=== PATIENT | male | born 1940 | race Caucasian/White ===

== ENCOUNTER 2020-02-12 08:39 | Outpatient (CLI) | payer MEDICARE, OTHER, SELFPAY ==
[2020-02-12 09:36] LABS: Basophils % 0.8 %; Eosinophils # 0.1 10^3/uL (0.0-0.8); Eosinophils % 3.2 %; Hematocrit 53.6 % (42.0-52.0); Lymphocytes # 1.1 10^3/uL (0.8-4.8); Lymphocytes % 29.2 %; Mean Corpuscular HGB Conc 33.6 g/dL (30.0-36.0); Mean Corpuscular Hemoglobin 30.8 pg (28.0-34.0); Mean Corpuscular Volume 91.8 fL (80-94); Mean Platelet Volume 10.7 fL (7.4-10.4); Monocytes # 0.6 10^3/uL (0.2-0.9); Monocytes % 15.6 %; Neutrophils # 1.9 10^3/uL (1.8-7.7); Neutrophils % 50.7 %; Nucleated Red Blood Cells % 0 %; Platelet Count 173 10^3/cmm (130-400); Red Blood Count 5.84 10^6/uL (4.1-5.3); Red Cell Distribution Width 12.4 % (12.1-15.1); White Blood Count 3.8 10^3/uL (4.0-10.0)
--- NOTE | 2020-02-12 17:39 | ONC CON_ITS ---
Dr. Spann New Patient Note Patient: Kenneth Dewitt Unit #: [id number]: 1940 Dicatated By: Farideh Spann M.D.Date of Visit: Feb 12, 2020 Onc MED New Patient/Consult Referring Physician: Anat RICHARD History of Present Illness: Mr. Kenneth Dewitt, is a 79-year-old gentleman with history of hypogonadism, now being treated with testosterone supplement for the last 4-5 years patient said he used to donate blood until recently. And his routine labs done on 02/05/2020 showed his white blood count was 3.9 hemoglobin 18.6 hematocrit 55 platelets 181,000 whereas CBC done on 10/03/2019 showed white blood count 3.8 hemoglobin 17.7 hematocrit 50.5, as per patient prior to that he never had any blood problem as he used to donate blood on a regular basis. Patient also has history of CVA in the past as per patient he did develop light sided weakness and speech problem and because of delayed in seeking help, he was treated conservatively with physical therapy and said it took about 2 years for him to recover fully. Patient denies smoking or alcohol use patient denies any headaches or blurred vision or double vision, patient denies any discoloration of lips. Denies any shortness of breath or any cardiac problem. Past Medical History: Mr. Dewitt's medical history consists of bph, depression, hyperlipidemia, osteoarthritis (bilateral knees), vitamin B12 deficiency, Vitamin D deficiency, and stroke in 2009. Past Surgical History: Mr. Valdezs surgical/procedural history consists of appendectomy, tonsillectomy, and vasectomy. Medications: Flomax 1 Capsule (of 0.4 mg) Oral daily, Vitamin B12 1 Tablet Oral daily Allergies: Codeine Sulfate and Demerol. 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 Mr. Dewitt has never smoked. He has no history of drinking. Mr. Dewitt reports the following support systems: lives with spouse, significant other, family, or friends, lives in own house, supportive family/friends willing to assist with needs, and adequate transportation available for expected visits. His diet consists of regular meals. He indicates his activity level as: regular exercise. Family History: Mr. Dewitt's mother is alive: hypertension. Mr. Dewitt's father at age 62: brain cancer. Mr. Dewitt has 1 brother who is alive: colon cancer. Review Of Symptoms: Review of Systems is not available for this patient. Vital Signs: Performed on Feb 12, 2020 11:23: 6, 39.72 (HIGH), 2.03 sq.m, 63.00 in, 96 %, 77 /min, 20 /min, 134/72 mm(hg), 98.4 F, and 224.2 lbs (HIGH). Performance Status: 0 - Fully active, able to carry on all predisease activities without restrictions. (ECOG) Physical Examination: ENMT - no mouth sores, no thrush, no jaundice, Respiratory - Lungs are clear, Cardiovascular - Regular rate and rhythm of heart, Abdomen - soft, bowel sounds present, Extremities - no edema or rash. Lab/Imaging: Most recent lab results are not available for this patient. 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 Hypogonadism, patient on testosterone supplement for the last 5 years History of CVA, now recovered Plan: Discussed with patient regarding his labs from today showed white blood count 3.8 hemoglobin 18 hematocrit 53.6 platelets 173,000 Clinically, patient is doing well with no new symptoms but his hematocrit and erythrocyte masses elevated most likely due to testosterone supplements as testosterone supplement can cause erythropoietin production or bone marrow stimulation and thus erythrocytosis. Patient was advised to hold his testosterone supplement for month but patient is reluctant as testosterone supplement is helping his generalized weakness and fatigue. In the meantime we'll consider biweekly phlebotomy with 500 mL and 250 mL normal saline to placement and goal is to get his hematocrit below 45, if not symptomatic maybe below 42 as patient has history of CVA in the past. Patient was also advised to start taking enteric-coated aspirin 325 mg by mouth daily and maintain good hydration we will also consider polycythemia panel to rule out underlying myeloproliferative disorder causing polycythemia. And abdominal sonogram to check spleen size and erythropoietin level. As patient has no history of smoking or hypoxia. Next Patient return to clinic in one month with CBC. Signed By: Farideh Spann M.D. <<Signature on File>>
== END 2020-02-12 08:40 | disposition home or self-care (01) ==
LOC: ONCMED 08:42
PROVIDERS: PCP Nurse Practitioner Family; Visit Provider Internal Medicine Hematology & Oncology
DX: D45 Polycythemia vera (principal); G47.33 Obstructive sleep apnea (adult) (pediatric); N40.0 Benign prostatic hyperplasia without lower urinary tract symptoms; F32.9 Major depressive disorder, single episode, unspecified; E78.5 Hyperlipidemia, unspecified; D51.9 Vitamin B12 deficiency anemia, unspecified; E55.9 Vitamin D deficiency, unspecified; M19.90 Unspecified osteoarthritis, unspecified site; Z86.73 Personal history of transient ischemic attack (TIA), and cerebral infarction without residual deficits
CPT/HCPCS: 85025; 99195; 99203

== ENCOUNTER 2020-02-13 10:00 | Outpatient (CLI) | payer MEDICARE, OTHER, SELFPAY ==
--- NOTE | 2020-02-13 10:08 | US_ITS ---
WS: [id number] ABDOMINAL ULTRASOUND REASON FOR EXAM: POLYCYTHEMIA TECHNIQUE: Grayscale and Doppler ultrasound examination of the abdomen. FINDINGS: Pancreas: Normal Abdominal aorta and IVC: Normal Liver: Liver measures 18.4 cm in length. Dense configuration the liver suggesting fatty infiltration. Gallbladder: Gallbladder wall thickness measures 0.3 cm. Common bile duct measured 0.49 cm. No gallst ones. Left kidney: Left kidney measures 14.9 cm x 5.2 cm x 5.6 cm. Left kidney cortex measures 1.23 c m cm. No hydronephrosis. Right kidney: Right kidney measures 13.2 cm x 5.0 cm x 5.7 cm. No hydronephrosis no stones. Spleen: Spleen measures 14.4 cm x 5.2 cm x 5.4 cm. Homogeneous configuration of the spleen which is slightly enlarged. US/US abdomen complete* [id number] IMPRESSION: Mild splenomegaly. Enlarged liver with hepatomegaly. Mild fatty infiltration. Slightly thickened wall gallbladder suggests cholecystitis.
== END 2020-02-13 10:01 | disposition home or self-care (01) ==
LOC: RAD 10:04
PROVIDERS: PCP Nurse Practitioner Family; Visit Provider Internal Medicine Hematology & Oncology
DX: D75.1 Secondary polycythemia (principal); R16.1 Splenomegaly, not elsewhere classified; R16.0 Hepatomegaly, not elsewhere classified; K76.0 Fatty (change of) liver, not elsewhere classified
CPT/HCPCS: 76700

== ENCOUNTER 2020-02-28 09:17 | Outpatient (CLI) | payer MEDICARE, OTHER, SELFPAY ==
[2020-02-28 09:42] LABS: Basophils % 0.9 %; Eosinophils # 0.1 10^3/uL (0.0-0.8); Eosinophils % 2.8 %; Hematocrit 52.8 % (42.0-52.0); Hemoglobin 17.6 g/dL (11.7-16.6); Lymphocytes # 1.3 10^3/uL (0.8-4.8); Mean Corpuscular HGB Conc 33.3 g/dL (30.0-36.0); Mean Corpuscular Hemoglobin 31.2 pg (28.0-34.0); Mean Corpuscular Volume 93.5 fL (80-94); Mean Platelet Volume 10.2 fL (7.4-10.4); Monocytes # 0.6 10^3/uL (0.2-0.9); Monocytes % 13.4 %; Neutrophils # 2.3 10^3/uL (1.8-7.7); Neutrophils % 52.7 %; Nucleated Red Blood Cells % 0 %; Platelet Count 181 10^3/cmm (130-400); Red Blood Count 5.65 10^6/uL (4.1-5.3); Red Cell Distribution Width 12.7 % (12.1-15.1); White Blood Count 4.3 10^3/uL (4.0-10.0)
[2020-02-28] MEDS: sodium chloride 0.9% 250 ML IV (09:55)
== END 2020-02-28 09:18 | disposition home or self-care (01) ==
LOC: ONCMED 09:20
PROVIDERS: PCP Nurse Practitioner Family; Visit Provider Internal Medicine Hematology & Oncology
DX: D75.1 Secondary polycythemia (principal)
CPT/HCPCS: 85025; 99195; 99211; J7050

== ENCOUNTER 2020-03-18 10:58 | Outpatient (CLI) | payer MEDICARE, OTHER, SELFPAY ==
[2020-03-18 11:47] LABS: Basophils % 0.7 %; Eosinophils # 0.2 10^3/uL (0.0-0.8); Eosinophils % 4.2 %; Hematocrit 51.1 % (42.0-52.0); Hemoglobin 17.2 g/dL (11.7-16.6); Lymphocytes # 1.2 10^3/uL (0.8-4.8); Lymphocytes % 29.6 %; Mean Corpuscular HGB Conc 33.7 g/dL (30.0-36.0); Mean Corpuscular Hemoglobin 31.6 pg (28.0-34.0); Mean Corpuscular Volume 93.9 fL (80-94); Mean Platelet Volume 10.6 fL (7.4-10.4); Monocytes # 0.6 10^3/uL (0.2-0.9); Neutrophils # 2.1 10^3/uL (1.8-7.7); Nucleated Red Blood Cells % 0 %; Platelet Count 211 10^3/cmm (130-400); Red Blood Count 5.44 10^6/uL (4.1-5.3); Red Cell Distribution Width 12.7 % (12.1-15.1); White Blood Count 4.1 10^3/uL (4.0-10.0)
--- NOTE | 2020-03-18 14:17 | ONC FU_ITS ---
Dr. Spann follow up note Patient: Kenneth Dewitt Unit #: [id number]: 1940 Dicatated By: Farideh Spann M.D.Date of Visit:Mar 18, 2020 Onc Med Follow-up/Prog Note History of Present Illness: Mr. Kenneth Dewitt, is a 79-year-old gentleman with history of hypogonadism, now being treated with testosterone supplement for the last 4-5 years patient said he used to donate blood until recently. And his routine labs done on 02/05/2020 showed his white blood count was 3.9 hemoglobin 18.6 hematocrit 55 platelets 181,000 whereas CBC done on 10/03/2019 showed white blood count 3.8 hemoglobin 17.7 hematocrit 50.5, as per patient prior to that he never had any blood problem as he used to donate blood on a regular basis. Patient also has history of CVA in the past as per patient he did develop light sided weakness and speech problem and because of delayed in seeking help, he was treated conservatively with physical therapy and said it took about 2 years for him to recover fully. Patient denies smoking or alcohol use patient denies any headaches or blurred vision or double vision, patient denies any discoloration of lips. Denies any shortness of breath or any cardiac problem.Abdominal sonogram done on February 13, 2020 showed liver measuring 18.4 cm, fatty infiltration and spleen measure 14.4 cm x 5.4 cm x 5.2 cm e.g. mildly enlarged Came for follow-up, denies any specific complaints, no fever chills, no nausea vomiting, no headaches blurred vision or double vision. Patient did not stop his testosterone supplement as per patient without testosterone supplements he feels weak and washed out. Tolerating phlebotomies well Medications: Depo-Testosterone 0.5 Each (of 100 mg/mL) Intramuscular q 7 days, Flomax 1 Capsule (of 0.4 mg) Oral daily, Vitamin B12 1 Tablet Oral daily Allergies: Codeine Sulfate and Demerol. Review of Systems: Constitutional - Appetite is good and weight is stable. No fever, night sweats, or hot flashes. Energy level is good, ENMT - No sinus congestion/drainage. No mouth sores. No sore throat or difficulty swallowing, Hematologic/Lymphatic - No abnormal bruising or bleeding, Respiratory - No shortness of breath. No cough. No pleuritic pain or hemoptysis, Cardiovascular - No angina pain. No palpitations, Gastrointestinal - No nausea or vomiting. No heartburn or acid reflux. No diarrhea or constipation. No blood in the stool or black stools, Genitourinary (M) - No dysuria or hematuria. No urinary frequency. No urgency or incontinence, Musculoskeletal - No joint or bone pain, Neurologic - No headache or dizziness. No numbness or tingling. No other focal neurologic symptoms, Psychiatric - No anxiety or depression. No insomnia. Vital Signs: Performed on Mar 18, 2020 13:19 Height - 63.00 in Weight - 219.8 lbs (LOW) BSA - 2.01 sq.m BMI - 38.94 (HIGH) Temperature - 98.6 F Pulse - 80 /min Respiration - 18 /min BP - 142/72 mm(hg) (HIGH) O2 Sat - 94 % (LOW) Pain - 0 Performance Status: 0 - Fully active, able to carry on all predisease activities without restrictions. (ECOG) Physical Examination: ENMT - No mouth sores, no thrush, no jaundice, Respiratory - Lungs are clear, Cardiovascular - Regular rate and rhythm of heart, Abdomen - Soft, bowel sounds present, Extremities - No visible edema. 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 Hypogonadism, patient on testosterone supplement for the last 5 years History of CVA, now recovered Plan: Discussed with patient regarding his labs white blood count 4.1 hemoglobin 17.2 hematocrit 51.1 platelets 211,000 abdominal sonogram showed mild hepatosplenomegaly Clinically, patient is doing well, with no new signs symptom, tolerating biweekly phlebotomies well, his follow-up CBC showed not significant improvement in his hemoglobin/hematocrit with biweekly phlebotomies, at this point we will consider weekly phlebotomy with 500 cc blood drawn and 250 cc normal saline replacement and goal is to keep hematocrit equal to or below 42. His abdominal sonogram shows mild hepatosplenomegaly of questionable etiology. So we will consider Devin 2 mutation testing to rule out primary marrow disorder like polycythemia vera or myeloproliferative disorder. Patient was advised to maintain good hydration as well as daily aspirin. Patient was again encouraged to discontinue or reduce testosterone supplement dose but patient declined. Signed By: Farideh Spann M.D. <<Signature on File>>
== END 2020-03-18 10:59 | disposition home or self-care (01) ==
LOC: ONCMED 11:02
PROVIDERS: PCP Nurse Practitioner Family; Visit Provider Internal Medicine Hematology & Oncology
DX: D75.1 Secondary polycythemia (principal); E29.1 Testicular hypofunction; R16.2 Hepatomegaly with splenomegaly, not elsewhere classified; Z79.890 Hormone replacement therapy; Z86.73 Personal history of transient ischemic attack (TIA), and cerebral infarction without residual deficits
CPT/HCPCS: 36415; 81270; 85025; 99195; 99214

== ENCOUNTER 2020-03-27 08:33 | Outpatient (CLI) | payer MEDICARE, OTHER, SELFPAY ==
[2020-03-27 09:07] LABS: Basophils % 0.9 %; Eosinophils # 0.1 10^3/uL (0.0-0.8); Eosinophils % 3.8 %; Hematocrit 50.3 % (42.0-52.0); Hemoglobin 16.7 g/dL (11.7-16.6); Lymphocytes # 1.2 10^3/uL (0.8-4.8); Mean Corpuscular HGB Conc 33.2 g/dL (30.0-36.0); Mean Corpuscular Hemoglobin 30.7 pg (28.0-34.0); Mean Corpuscular Volume 92.5 fL (80-94); Mean Platelet Volume 10.5 fL (7.4-10.4); Monocytes # 0.5 10^3/uL (0.2-0.9); Monocytes % 15.3 %; Neutrophils # 1.52 10^3/uL (1.8-7.7); Neutrophils % 44.7 %; Nucleated Red Blood Cells % 0 %; Platelet Count 188 10^3/cmm (130-400); Red Blood Count 5.44 10^6/uL (4.1-5.3); Red Cell Distribution Width 12.5 % (12.1-15.1); White Blood Count 3.4 10^3/uL (4.0-10.0)
== END 2020-03-27 08:34 | disposition home or self-care (01) ==
LOC: ONCMED 08:36
PROVIDERS: PCP Nurse Practitioner Family; Visit Provider Internal Medicine Hematology & Oncology
DX: E78.5 Hyperlipidemia, unspecified; D51.9 Vitamin B12 deficiency anemia, unspecified; E55.9 Vitamin D deficiency, unspecified; N40.0 Benign prostatic hyperplasia without lower urinary tract symptoms; F32.9 Major depressive disorder, single episode, unspecified; D75.1 Secondary polycythemia
CPT/HCPCS: 36415; 85025; 99195

== ENCOUNTER 2020-04-03 08:48 | Outpatient (CLI) | payer MEDICARE, OTHER, SELFPAY ==
[2020-04-03 09:19] LABS: Basophils % 0.8 %; Eosinophils # 0.1 10^3/uL (0.0-0.8); Eosinophils % 3.5 %; Hematocrit 47.4 % (42.0-52.0); Hemoglobin 15.7 g/dL (11.7-16.6); Lymphocytes # 1.3 10^3/uL (0.8-4.8); Lymphocytes % 32.8 %; Mean Corpuscular HGB Conc 33.1 g/dL (30.0-36.0); Mean Corpuscular Hemoglobin 30.6 pg (28.0-34.0); Mean Corpuscular Volume 92.4 fL (80-94); Mean Platelet Volume 10.6 fL (7.4-10.4); Monocytes # 0.6 10^3/uL (0.2-0.9); Neutrophils # 1.94 10^3/uL (1.8-7.7); Neutrophils % 48.6 %; Nucleated Red Blood Cells % 0 %; Platelet Count 213 10^3/cmm (130-400); Red Blood Count 5.13 10^6/uL (4.1-5.3); Red Cell Distribution Width 12.2 % (12.1-15.1)
== END 2020-04-03 08:49 | disposition home or self-care (01) ==
LOC: ONCMED 08:50
PROVIDERS: PCP Nurse Practitioner Family; Visit Provider Internal Medicine Hematology & Oncology
DX: D75.1 Secondary polycythemia (principal); E78.5 Hyperlipidemia, unspecified; D51.9 Vitamin B12 deficiency anemia, unspecified; E55.9 Vitamin D deficiency, unspecified
CPT/HCPCS: 36415; 85025

== ENCOUNTER 2020-04-10 08:18 | Outpatient (CLI) | payer MEDICARE, OTHER, SELFPAY ==
[2020-04-10 09:09] LABS: Basophils % 0.7 %; Eosinophils # 0.2 10^3/uL (0.0-0.8); Eosinophils % 3.7 %; Hematocrit 48.5 % (42.0-52.0); Hemoglobin 16.3 g/dL (11.7-16.6); Lymphocytes # 1.2 10^3/uL (0.8-4.8); Mean Corpuscular HGB Conc 33.6 g/dL (30.0-36.0); Mean Corpuscular Hemoglobin 30.9 pg (28.0-34.0); Mean Corpuscular Volume 91.9 fL (80-94); Mean Platelet Volume 10.4 fL (7.4-10.4); Monocytes # 0.6 10^3/uL (0.2-0.9); Monocytes % 14.8 %; Neutrophils # 2.27 10^3/uL (1.8-7.7); Neutrophils % 52.6 %; Nucleated Red Blood Cells % 0 %; Platelet Count 214 10^3/cmm (130-400); Red Blood Count 5.28 10^6/uL (4.1-5.3); White Blood Count 4.3 10^3/uL (4.0-10.0)
[2020-04-10] MEDS: sodium chloride 0.9% 500 ML 999 ML IV (09:15)
== END 2020-04-10 08:19 | disposition home or self-care (01) ==
LOC: ONCMED 08:29
PROVIDERS: PCP Nurse Practitioner Family; Visit Provider Internal Medicine Hematology & Oncology
DX: D75.1 Secondary polycythemia (principal)
CPT/HCPCS: 85025; 99195; J7050

== ENCOUNTER 2020-04-24 06:20 | Outpatient (CLI) | payer MEDICARE, OTHER, SELFPAY ==
[2020-04-24 08:53] LABS: Basophils # 0.1 10^3/uL (0.0-0.1); Basophils % 1.3 %; Eosinophils # 0.1 10^3/uL (0.0-0.8); Eosinophils % 3.2 %; Hematocrit 45.1 % (42.0-52.0); Lymphocytes # 1.3 10^3/uL (0.8-4.8); Lymphocytes % 34.2 %; Mean Corpuscular HGB Conc 33.3 g/dL (30.0-36.0); Mean Corpuscular Hemoglobin 30.4 pg (28.0-34.0); Mean Corpuscular Volume 91.5 fL (80-94); Mean Platelet Volume 10.7 fL (7.4-10.4); Monocytes # 0.7 10^3/uL (0.2-0.9); Monocytes % 18.2 %; Neutrophils # 1.63 10^3/uL (1.8-7.7); Neutrophils % 42.8 %; Nucleated Red Blood Cells % 0 %; Platelet Count 199 10^3/cmm (130-400); Red Blood Count 4.93 10^6/uL (4.1-5.3); Red Cell Distribution Width 11.7 % (12.1-15.1); White Blood Count 3.8 10^3/uL (4.0-10.0)
--- NOTE | 2020-04-27 09:31 | ONC FU_ITS ---
Dr. Spann follow up note Patient: Kenneth Dewitt Unit #: [id number]: 1940 Dicatated By: Farideh Spann M.D.Date of Visit:Apr 24, 2020 Onc Med Follow-up/Prog Note History of Present Illness: Mr. Kenneth Dewitt, is a 79-year-old gentleman with history of hypogonadism, now being treated with testosterone supplement for the last 4-5 years patient said he used to donate blood until recently. And his routine labs done on 02/05/2020 showed his white blood count was 3.9 hemoglobin 18.6 hematocrit 55 platelets 181,000 whereas CBC done on 10/03/2019 showed white blood count 3.8 hemoglobin 17.7 hematocrit 50.5, as per patient prior to that he never had any blood problem as he used to donate blood on a regular basis. Patient also has history of CVA in the past as per patient he did develop light sided weakness and speech problem and because of delayed in seeking help, he was treated conservatively with physical therapy and said it took about 2 years for him to recover fully. Patient denies smoking or alcohol use patient denies any headaches or blurred vision or double vision, patient denies any discoloration of lips. Denies any shortness of breath or any cardiac problem. Tolerating PRN phlebotomies well Came for follow-up, complaining of generalized weakness and fatigue since last phlebotomy but no dizziness no lightheadedness no palpitation, no chest pain, no shortness of breath, no headaches no blurred vision no double vision, Medications: Depo-Testosterone 0.5 Each (of 100 mg/mL) Intramuscular q 7 days, Flomax 1 Capsule (of 0.4 mg) Oral daily, Vitamin B12 1 Tablet Oral daily Allergies: Codeine Sulfate and Demerol. Review of Systems: Constitutional - Appetite is good and weight is stable. No fever, night sweats, or hot flashes. Energy level is poor today, ENMT - No sinus congestion/drainage. No mouth sores. No sore throat or difficulty swallowing, Hematologic/Lymphatic - No abnormal bruising or bleeding, Respiratory - No shortness of breath. No cough. No pleuritic pain or hemoptysis, Cardiovascular - No angina pain. No palpitations, Gastrointestinal - No nausea or vomiting. No heartburn or acid reflux. No diarrhea or constipation. No blood in the stool or black stools, Genitourinary (M) - No dysuria or hematuria. No urinary frequency. No urgency or incontinence, Musculoskeletal - No joint or bone pain, Neurologic - No headache or dizziness. No numbness or tingling. No other focal neurologic symptoms, Psychiatric - No anxiety or depression. No insomnia. Vital Signs: Performed on Apr 24, 2020 10:08 Height - 63.00 in Weight - 220.0 lbs (HIGH) BSA - 2.01 sq.m BMI - 38.97 (HIGH) Temperature - 98.2 F (LOW) Pulse - 80 /min Respiration - 24 /min BP - 132/65 mm(hg) O2 Sat - 96 % Pain - 0 Performance Status: 0 - Fully active, able to carry on all predisease activities without restrictions. (ECOG) Physical Examination: ENMT - No mouth sores, no thrush, no jaundice, Respiratory - Lungs are clear, Cardiovascular - Regular rate and rhythm of heart, Abdomen - Soft, bowel sounds present, Extremities - No visible edema or rash. 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 Patient was advised to maintain good hydration and return to clinic in 2 months with CBC Signed By: Farideh Spann M.D. <<Signature on File>>
== END 2020-04-24 06:21 | disposition home or self-care (01) ==
PROVIDERS: PCP Nurse Practitioner Family; Visit Provider Internal Medicine Hematology & Oncology
DX: D75.1 Secondary polycythemia (principal); E29.1 Testicular hypofunction; R53.1 Weakness; R53.83 Other fatigue; Z79.890 Hormone replacement therapy; Z86.73 Personal history of transient ischemic attack (TIA), and cerebral infarction without residual deficits
CPT/HCPCS: 85025; G0463

== ENCOUNTER 2020-06-26 08:15 | Outpatient (CLI) | payer MEDICARE, OTHER, SELFPAY ==
[2020-06-26 08:42] LABS: Basophils % 0.8 %; Eosinophils # 0.1 10^3/uL (0.0-0.8); Eosinophils % 3.5 %; Hematocrit 48.3 % (42.0-52.0); Hemoglobin 15.1 g/dL (11.7-16.6); Lymphocytes # 1.3 10^3/uL (0.8-4.8); Lymphocytes % 35.7 %; Mean Corpuscular HGB Conc 31.3 g/dL (30.0-36.0); Mean Corpuscular Hemoglobin 27.9 pg (28.0-34.0); Mean Corpuscular Volume 89.1 fL (80-94); Mean Platelet Volume 10.2 fL (7.4-10.4); Monocytes # 0.6 10^3/uL (0.2-0.9); Monocytes % 15.8 %; Neutrophils # 1.64 10^3/uL (1.8-7.7); Neutrophils % 43.9 %; Nucleated Red Blood Cells % 0 %; Platelet Count 203 10^3/cmm (130-400); Red Blood Count 5.42 10^6/uL (4.1-5.3); Red Cell Distribution Width 12.5 % (12.1-15.1); White Blood Count 3.7 10^3/uL (4.0-10.0)
--- NOTE | 2020-06-26 10:45 | ONC FU_ITS ---
Dr. Spann follow up note Patient: Kenneth Dewitt Unit #: [id number]: 1940 Dicatated By: Farideh Spann M.D.Date of Visit:Jun 26, 2020 Onc Med Follow-up/Prog Note History of Present Illness: Mr. Kenneth Dewitt, is a 79-year-old gentleman with history of hypogonadism, now being treated with testosterone supplement for the last 4-5 years patient said he used to donate blood until recently. And his routine labs done on 02/05/2020 showed his white blood count was 3.9 hemoglobin 18.6 hematocrit 55 platelets 181,000 whereas CBC done on 10/03/2019 showed white blood count 3.8 hemoglobin 17.7 hematocrit 50.5, as per patient prior to that he never had any blood problem as he used to donate blood on a regular basis. Patient also has history of CVA in the past as per patient he did develop light sided weakness and speech problem and because of delayed in seeking help, he was treated conservatively with physical therapy and said it took about 2 years for him to recover fully. Patient denies smoking or alcohol use patient denies any headaches or blurred vision or double vision, patient denies any discoloration of lips. Denies any shortness of breath or any cardiac problem. Tolerating PRN phlebotomies well Came for follow-up, denies any specific complaints, no fever chills, no headaches no blurred vision or double vision no chest pain no shortness of breath no heaviness in the head or chest. Medications: Depo-Testosterone 0.5 Each (of 100 mg/mL) Intramuscular q 7 days, Flomax 1 Capsule (of 0.4 mg) Oral daily, Multivitamin 1 Tablet Oral daily, Vitamin B12 1 Tablet Oral daily Allergies: Codeine Sulfate and Demerol. Review of Systems: Review of Systems is not available for this patient. Vital Signs: Performed on Jun 26, 2020 09:59 Height - 63.00 in Weight - 220.6 lbs (HIGH) BSA - 2.02 sq.m BMI - 39.08 (HIGH) Temperature - 97.7 F (LOW) Pulse - 70 /min Respiration - 18 /min BP - 144/71 mm(hg) (HIGH) O2 Sat - 97 % Pain - 0 Performance Status: 0 - Fully active, able to carry on all predisease activities without restrictions. (ECOG) Physical Examination: ENMT - No mouth sores, no thrush, no jaundice, Respiratory - Lungs are clear to auscultation, Cardiovascular - Regular rate and rhythm of heart, Abdomen - Soft, bowel sounds present, Extremities - No visible edema. 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 Hypogonadism, patient on testosterone supplement for the last 5 years History of CVA, now recovered Plan: Discussed with patient regarding his labs white blood count 3.7 hemoglobin 15.1 hematocrit 48.3 platelets 203,000 Clinically, patient is doing well with the notes new signs symptoms, his follow-up CBC shows hematocrit 48.3 which is within normal range. 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 Patient is doing well, energetic. At this point will see him on as-needed basis, patient will follow-up with his primary care physician on regular basis and patient was advised in case he has any symptoms like recurrent headaches or heaviness in chest or head he need to call us otherwise maintain good hydration. Mild leukopenia, patient is not interested in further work-up rather observation. Signed By: Farideh Spann M.D. <<Signature on File>>
== END 2020-06-26 08:16 | disposition home or self-care (01) ==
LOC: ONCMED 08:18
PROVIDERS: PCP Nurse Practitioner Family; Visit Provider Internal Medicine Hematology & Oncology
DX: D75.1 Secondary polycythemia (principal); T38.7X5D Adverse effect of androgens and anabolic congeners, subsequent encounter; D72.819 Decreased white blood cell count, unspecified; E29.1 Testicular hypofunction; Z86.73 Personal history of transient ischemic attack (TIA), and cerebral infarction without residual deficits; Z79.890 Hormone replacement therapy
CPT/HCPCS: 36415; 85025; G0463

== ENCOUNTER 2020-08-18 17:00 | Emergency (ER) | payer MEDICARE, OTHER, SELFPAY ==
--- NOTE | 2020-08-18 17:11 | XR_ITS ---
WS: [id number] XR chest 1V portable [id number] REASON FOR EXAM: syncope FINDINGS: Moderate tortuosity of the thoracic aorta without dilatation. The heart size is at the upper limits o f normal. There are reticular nodular interstitial infiltrative changes in the periphery of the right midlung f ield and also likely the left midlung field. No findings of pleural effusion are identified. Degenerative changes in both shoulder joints and mild to moderate degenerative spondylosis in the mid and lower thoracic spine. XR/XR chest 1V portable [id number] IMPRESSION: Pulmonary infiltrates of unknown chronicity as above compatible with acute/suba cute pneumonitis.
[2020-08-18 17:23] VITALS: BP 133/74; PULSE 85; RESP 20; O2SAT 92; BMI 26.9
--- NOTE | 2020-08-18 17:38 | ECG_ITS ---
[facility] Test Date: 2020-08-18 Pat Name: Kenneth Dewitt Department: Room: Gender: Male [employer] Inspector: : 1940 Requested By: Jesi Johnston Order Number: [id number] Manzo MD: Sue Orr M.D. Measurements Intervals [place] Rate: 82 P: -2 [place]: 113 QRS: -19 QRSD: 107 T: 1 QT: 344 QTc: 402 Interpretive Statements SINUS RHYTHM WITH SHORT [place] INTERVAL VOLTAGE CRITERIA FOR LVH [MEETS CRITERIA IN ONE OF: R(aVL), S(V1), R(V5), R(V5/V6)+S(V1)] NONSPECIFIC T-WAVE ABNORMALITY No previous ECG available for comparison Electronically Signed On 08-18-2020 20:59:30 CHEMICAL ANALYST by Sue Orr M.D. [email or web address]
--- NOTE | 2020-08-18 17:40 | W.ED.COVID ---
HPI - COVID General: Chief Complaint: COVID symptoms Stated Complaint: COVID +/Cough,Fever,Weak, Trouble Eating Time Seen by Provider: 08/18/20 17:20 Triage information: Has fever, cough or shortness of breath. No known COVID + exposure last 14 days History of Present Illness: HPI Narrative: 80 year old male presents to the ED with worsening COVID symptoms - reports + test result 08/10/2020. Spouse reports sudden onset of fever, low O2 sat with decreased appetite x 2 days - reports he has increased breathing problems today. MD complaint: known COVID positive Prior covid testing: yes, results known ([facility]) Prior testing date: 08/10/20 COVID 19 common symptoms: positive fever(s), chills, cough, productive cough, dyspnea, body aches, loss of sense of smell and/or taste and nasal congestion; negative headache(s), nausea, vomiting or diarrhea COVID 19 other sytmptoms: positive lethargy; negative chest pain Onset (ago): week(s) (2) Severity: slowly worsening Pertinent comorbid conditions: other (polycythemia) Treatment prior to arrival: acetaminophen COVID Results: SARS-CoV-2 Antigen (Rapid) Negative (Negative) 08/18/20 19:19 08/18/20 Nasal/Oral Coronavirus 2019 PCR Pending 08/18/20 19:19 08/18/20 Review of Systems General: Reports: 10 or more systems reviewed and unremarkable except in HPI and below Const: Reports: fever(s), chills and body aches Eyes: Denies: blurry vision or eye redness ENMT: Reports: nasal discharge, nasal congestion, nasal obstruction and post nasal drip; Denies: odynophagia, hoarseness or ear discharge Card: Reports: dyspnea on exertion; Denies: chest pain, palpitations, irregular heart rhythm, swelling of feet/ankles, orthopnea or leg pain with exertion Resp: Reports: dyspnea, productive cough and chest congestion; Denies: pain on inspiration or hemoptysis GI: Denies: abdominal pain, nausea, vomiting, diarrhea, constipation or GI cramping : Denies: difficulty urinating, dysuria or urinary urgency Musc: Reports: muscle weakness; Denies: neck pain, back pain or joint pain Skin/Breast: Denies: rash or pruritus Neuro: Denies: headache(s), weakness in extremities or behavioral changes Psych: Denies: anxiety or depression Mike/Lymph: Denies: easy bruising PFSH ED PFSH: Social History (Updated 08/18/20 @ 17:48 by Jesi Griffin ADVERTISING COLUMNIST) Smoking and tobacco status: never smoked Household members: spouse Housing: House Physical Exam Const: COMMON NORMALS: no acute distress, patient oriented x3, alert and well nourished GENERAL APPEARANCE: cooperative, frail appearing, well hydrated and other (appears not feeling well); not in distress, not anxious and not lethargic NUTRITIONAL APPEARANCE: thin ORIENTATION/CONSCIOUSNESS: Yes awake, Yes oriented to person, Yes oriented to place and Yes oriented to time; not lethargic HENMT: COMMON NORMALS: normocephalic, atraumatic, Normal external nose present and moist oral mucous membranes HEAD & SCALP: normal to inspection, normocephalic and atraumatic FACE & SINUS: normal facial exam and face symmetric NOSE: Normal external nose present MOUTH: Normal oral and palatal mucosa present THROAT: posterior oropharynx normal Eye: COMMON NORMALS: Equal, round and reactive pupils present and EOMs intact bilaterally GENERAL EYE: appearance normal, both eyes and all related structures PUPIL: Yes Equal, round and reactive pupils present Neck/C-Spine: COMMON NORMALS: full ROM and no lymphadenopathy GENERAL: Yes normal visual inspection and Yes trachea midline CERVICAL SPINE: Yes cervical ROM normal, No pain with cervical ROM, No Cervical spine tenderness and No Paracervical muscle tenderness Lymph: LYMPHATIC: no lymphadenopathy noted Chest: COMMONS NORMALS: normal inspection of the chest Resp: COMMON NORMALS: normal respiratory effort and clear to auscultation bilaterally EFFORT & INSPECTION: Yes able to speak in complete sentences, Yes symmetric chest movement, Yes tachypneic and Yes labored AUSCULTATION: clear to auscultation bilaterally, rhonchi and diminished lung sounds bilateral Cardio: COMMON NORMALS: regular rate, regular rhythm, S1 normal heart sound present, S2 normal heart sound present and Peripheral pulses 2+ throughout RATE: regular rate RHYTHM: regular rhythm HEART SOUNDS: S1 normal heart sound present and S2 normal heart sound present PERIPHERAL PULSES: Peripheral pulses 2+ throughout GI: COMMON NORMALS: Normal to inspection, nondistended, normoactive bowel sounds present, Soft to palpation and non-tender INSPECTION: Yes normal to inspection, No abdominal distension and No central obesity PALPATION: Yes Soft to palpation : COMMON NORMALS: Yes no CVA tenderness BLADDER/KIDNEY EXAM: Yes no CVA tenderness Back/Pelvis: COMMON NORMALS: no CVA tenderness, thoracic and lumbar spine normal to inspection, no thoracic nor lumbar tenderness, thoraco-lumbar ROM normal and straight leg raise negative bilaterally Extremity: COMMON NORMALS: normal to inspection and capillary refill normal Neuro: COMMON NORMALS: patient oriented x3 and no focal motor deficits SENSORIUM/ORIENTATION: Yes alert, Yes oriented to person, Yes oriented to place, Yes oriented to time and No lethargic MOTOR EXAM: 5/5 motor strength present throughout Psych: COMMON NORMALS: mental status grossly normal, Normal thought process present, cooperative and speech normal APPEARANCE: Yes grossly normal ATTITUDE: Yes calm ACTIVITY/MOTOR BEHAVIOR: Yes appropriate eye contact SPEECH: Yes normal speech THOUGHT PROCESS: Normal thought process present INSIGHT: Good insight present (Psych) JUDGEMENT: Good judgement present (Psych) Skin: COMMON NORMALS: no rashes or lesions noted and turgor normal GENERAL SKIN EXAM: no rashes or lesions noted and turgor normal Course ED course: 80-year-old male patient presents to the emergency department with Covid symptoms. Previous test results by [facility], unable to retrieve those [employer], testing date 08/10/2020 with positive results. Onset of fever and decline started today, fever reduced with Tylenol. Concern he may have pneumonia, was referred to the emergency department by his primary care provider. Chest x-ray revealed questionable right middle lobe infiltrate, bibasilar opacities noted. Radiology interpretation pending by radiologist. Oxygen saturation remained 92 to 96% during his stay. He is able to monitor his oxygen saturation at home and did not wish to stay in the hospital. Respiratory did evaluate for home O2, patient did not qualify as O2 saturations ranged from 92 to 96%. Serology findings consistent with Covid illness, white blood count 3.8 thousand, elevated ESR and CRP noted, D-dimer normal, prolactin remains pending. Influenza negative. Patient administered Rocephin and azithromycin along with dexamethasone here in the ED. Patient was advised to return to the emergency department if he developed worsening symptoms such as inability to catch his breath or low oxygen level. Patient stated he did not wish to be discharged with oxygen unless absolutely necessary. Vital Signs: Vital signs: Vital Signs Pulse Rate 86 12/08/20 20:18 Respiratory Rate 17 08/18/20 20:18 Blood Pressure 155/76 08/18/20 20:18 Pulse Oximetry 92 08/18/20 20:18 MDM - COVID Differential Diagnosis: Differential diagnosis: Likely COVID 19, influenza and pulmonary embolism Lab Data: Labs: Lab Results 08/18/20 08/18/20 08/18/20 Range/Units 18:20 18:20 18:20 WBC 3.8 L (4.0-10.0) 10^3/ uL RBC 5.03 (4.1-5.3) 10^6/u L Hgb 13.6 (11.7-16.6) g/dL Hct 42.7 (42.0-52.0) % MCV 84.9 (80-94) fL MCH 27.0 L (28.0-34.0) pg MCHC 31.9 (30.0-36.0) g/dL RDW 14.2 (12.1-15.1) % Plt Count 151 (130-400) 10^3/c mm MPV 10.6 H (7.4-10.4) fL Neut % (Auto) 77.2 % Lymph % (Auto) 12.5 % [place] % (Auto) 9.0 % Eos % (Auto) 0.5 % Baso % (Auto) 0.3 % Neut # (Auto) 2.90 (1.8-7.7) 10^3/u L Lymph # (Auto) 0.5 L (0.8-4.8) 10^3/u L [place] # (Auto) 0.3 (0.2-0.9) 10^3/u L Eos # (Auto) 0.0 (0.0-0.8) 10^3/u L Baso # (Auto) 0.0 (0.0-0.1) 10^3/u L Nucleated RBC % (a uto) 0 % Nucleated RBCs # 0.0 /100WBC ESR (0-10) mm/hr D-Dimer (0-0.59) ug/mIFE U Sodium 133 L (136-145) mmol/L Potassium 4.2 (3.5-5.1) mmol/L Chloride 99 (98-107) mmol/L Carbon Dioxide 23 (22-29) mmol/L Anion Gap 15.2 (5-19) BUN 19 (8-23) mg/dL Creatinine 0.7 (0.7-1.2) mg/dL GFR Calculation Not Reportable Glucose 118 H (65-115) mg/dL Calculated Osmolal ity 279 L (285-295) mOsm/k g Lactate 0.8 (0.5-2.2) mmol/L Calcium 8.9 (8.5-10.5) mg/dL Total Bilirubin 0.5 (0.15-1.2) mg/dL AST 18 (0-40) U/L ALT 18 (0-41) U/L Alkaline Phosphata se 49 (40-130) IU/L Troponin T Baselin e (0-15) ng/L C-Reactive Protein 92.4 H (0.0-4.9) mg/L Total Protein 6.8 (6.6-8.7) g/dL Albumin 3.5 (3.5-5.2) g/dL Globulin 3.3 (1.3-4.6) g/dL Urine Color (Yellow) Urine Appearance (CLEAR) Urine pH (5-7) Ur Specific Gravit y (1.005-1.030) Urine Protein (Negative) Urine Glucose (UA) (Normal) Urine Ketones (Negative) Urine Blood (Negative) Urine Nitrate (Negative) Urine Bilirubin (Negative) Urine Urobilinogen (Negative) mg/dL Ur Leukocyte [place] ase (Negative) Urine RBC (0-2) /hpf Urine WBC (0-5) /hpf Ur Squamous Epith Cells (0-5) /hpf Amorphous Sediment Urine Bacteria (NONE) /hpf Urine Mucus /hpf Influenza Type A A g (Negative) Influenza Type B A g (Negative) SARS-CoV-2 Ag (Rap id) (Negative) 08/18/20 08/18/20 08/18/20 Range/Units 18:20 18:20 18:20 WBC (4.0-10.0) 10^3/ uL RBC (4.1-5.3) 10^6/u L Hgb (11.7-16.6) g/dL Hct (42.0-52.0) % MCV (80-94) fL MCH (28.0-34.0) pg MCHC (30.0-36.0) g/dL RDW (12.1-15.1) % Plt Count (130-400) 10^3/c mm MPV (7.4-10.4) fL Neut % (Auto) % Lymph % (Auto) % [place]ding % (Auto) % Eos % (Auto) % Baso % (Auto) % Neut # (Auto) (1.8-7.7) 10^3/u L Lymph # (Auto) (0.8-4.8) 10^3/u L [place] # (Auto) (0.2-0.9) 10^3/u L Eos # (Auto) (0.0-0.8) 10^3/u L Baso # (Auto) (0.0-0.1) 10^3/u L Nucleated RBC % (a uto) % Nucleated RBCs # /100WBC ESR 54 H (0-10) mm/hr D-Dimer 0.55 (0-0.59) ug/mIFE U Sodium (136-145) mmol/L Potassium (3.5-5.1) mmol/L Chloride (98-107) mmol/L Carbon Dioxide (22-29) mmol/L Anion Gap (5-19) BUN (8-23) mg/dL Creatinine (0.7-1.2) mg/dL GFR Calculation Glucose (65-115) mg/dL Calculated Osmolal ity (285-295) mOsm/k g Lactate (0.5-2.2) mmol/L Calcium (8.5-10.5) mg/dL Total Bilirubin (0.15-1.2) mg/dL AST (0-40) U/L ALT (0-41) U/L Alkaline Phosphata se (40-130) IU/L Troponin T Baselin e 15 (0-15) ng/L C-Reactive Protein (0.0-4.9) mg/L Total Protein (6.6-8.7) g/dL Albumin (3.5-5.2) g/dL Globulin (1.3-4.6) g/dL Urine Color (Yellow) Urine Appearance (CLEAR) Urine pH (5-7) Ur Specific Gravit y (1.005-1.030) Urine Protein (Negative) Urine Glucose (UA) (Normal) Urine Ketones (Negative) Urine Blood (Negative) Urine Nitrate (Negative) Urine Bilirubin (Negative) Urine Urobilinogen (Negative) mg/dL Ur Leukocyte [place] ase (Negative) Urine RBC (0-2) /hpf Urine WBC (0-5) /hpf Ur Squamous Epith Cells (0-5) /hpf Amorphous Sediment Urine Bacteria (NONE) /hpf Urine Mucus /hpf Influenza Type A A g (Negative) Influenza Type B A g (Negative) SARS-CoV-2 Ag (Rap id) (Negative) 08/18/20 08/18/20 08/18/20 Range/Units 19:00 19:19 19:28 WBC (4.0-10.0) 10^3/ uL RBC (4.1-5.3) 10^6/u L Hgb (11.7-16.6) g/dL Hct (42.0-52.0) % MCV (80-94) fL MCH (28.0-34.0) pg MCHC (30.0-36.0) g/dL RDW (12.1-15.1) % Plt Count (130-400) 10^3/c mm MPV (7.4-10.4) fL Neut % (Auto) % Lymph % (Auto) % [place]ding % (Auto) % Eos % (Auto) % Baso % (Auto) % Neut # (Auto) (1.8-7.7) 10^3/u L Lymph # (Auto) (0.8-4.8) 10^3/u L [place] # (Auto) (0.2-0.9) 10^3/u L Eos # (Auto) (0.0-0.8) 10^3/u L Baso # (Auto) (0.0-0.1) 10^3/u L Nucleated RBC % (a uto) % Nucleated RBCs # /100WBC ESR (0-10) mm/hr D-Dimer (0-0.59) ug/mIFE U Sodium (136-145) mmol/L Potassium (3.5-5.1) mmol/L Chloride (98-107) mmol/L Carbon Dioxide (22-29) mmol/L Anion Gap (5-19) BUN (8-23) mg/dL Creatinine (0.7-1.2) mg/dL GFR Calculation Glucose (65-115) mg/dL Calculated Osmolal ity (285-295) mOsm/k g Lactate (0.5-2.2) mmol/L Calcium (8.5-10.5) mg/dL Total Bilirubin (0.15-1.2) mg/dL AST (0-40) U/L ALT (0-41) U/L Alkaline Phosphata se (40-130) IU/L Troponin T Baselin e (0-15) ng/L C-Reactive Protein (0.0-4.9) mg/L Total Protein (6.6-8.7) g/dL Albumin (3.5-5.2) g/dL Globulin (1.3-4.6) g/dL Urine Color Yellow (Yellow) Urine Appearance Clear (CLEAR) Urine pH 5.0 (5-7) Ur Specific Gravit y 1.015 (1.005-1.030) Urine Protein 1+ H (Negative) Urine Glucose (UA) Norm (Normal) Urine Ketones 1+ H (Negative) Urine Blood Neg (Negative) Urine Nitrate Negative (Negative) Urine Bilirubin Neg (Negative) Urine Urobilinogen 4 H (Negative) mg/dL Ur Leukocyte [place] ase Trace H (Negative) Urine RBC 0-4 H (0-2) /hpf Urine WBC 5-10 H (0-5) /hpf Ur Squamous Epith Cells None (0-5) /hpf Amorphous Sediment Not Reportable Urine Bacteria 1+ H (NONE) /hpf Urine Mucus 2+ /hpf Influenza Type A A g Negative (Negative) Influenza Type B A g Negative (Negative) SARS-CoV-2 Ag (Rap id) Negative (Negative) EKG Data: EKG 1: EKG interpretation date: 08/18/20 EKG interpretation time: 18:15 Prior EKG tracings: not available for review Computer generated interpretation: Sinus rhythm with short ME interval, nonspecific T wave abnormality, ventricular rate 82 COVID Results: SARS-CoV-2 Antigen (Rapid) Negative (Negative) 08/18/20 19:19 08/18/20 Nasal/Oral Coronavirus 2019 PCR Pending 08/18/20 19:19 08/18/20 Discharge Plan Discharge Patient Disposition: Home Clinical Impression: COVID-19 Pneumonia Qualifiers: Pneumonia type: due to unspecified organism Laterality: right Lung location: middle lobe of lung Qualified Code(s): J18.9 - Pneumonia, unspecified organism Condition: Stable Prescriptions: New Decadron 6 mg tablet 6 mg PO DAILY Qty: 9 RF: 0 azithromycin 250 mg tablet See Rx Instructions PO .COMPLEX Qty: 4 RF: 0 cefdinir 300 mg capsule 300 mg PO BID 7 Days Qty: 14 RF: 0 No Action tamsulosin 0.4 mg capsule 0.4 mg PO BID@,19 RF: 0 Discharge Orders: Discharge ED (Routine); Ordered 08/18/20 Ordered By: Jesi Griffin Referrals: Shayy Ruano [Primary Care Provider] - Discharge Diet: Usual diet Discharge Activity: Limit activity as instructed Patient Instructions: Viral Syndrome (ED), Pneumonia (ED) Activity Restrictions/Additional Instructions: rest at home return to the ED if you develop oxygen saturation less than 90%, inability to catch your breath, difficulty breathing or other concerning symptoms such as nausea vomiting Continue to monitor oxygen saturation, oxygen should be above 92% Push fluids to avoid dehydration and to help control fever Continue Tylenol as needed for fever Follow-up with your primary care physician this week without fail, you will need monitoring to ensure you are improving Take antibiotics and dexamethasone until all gone, start medication tomorrow as your first dose was administered here in the ED Coding Level of Care Code ED Guest Services Assistant for Nancy Fwjael Exam Comprehensive
[2020-08-18 18:27] VITALS: O2SAT 92
[2020-08-18 18:29] VITALS: BP 147/78; PULSE 86; RESP 17; O2SAT 94
[2020-08-18 18:48] LABS: Basophils % 0.3 %; Eosinophils % 0.5 %; Hematocrit 42.7 % (42.0-52.0); Hemoglobin 13.6 g/dL (11.7-16.6); Lymphocytes # 0.5 10^3/uL (0.8-4.8); Lymphocytes % 12.5 %; Mean Corpuscular HGB Conc 31.9 g/dL (30.0-36.0); Mean Corpuscular Volume 84.9 fL (80-94); Mean Platelet Volume 10.6 fL (7.4-10.4); Monocytes # 0.3 10^3/uL (0.2-0.9); Neutrophils % 77.2 %; Nucleated Red Blood Cells % 0 %; Platelet Count 151 10^3/cmm (130-400); Red Blood Count 5.03 10^6/uL (4.1-5.3); Red Cell Distribution Width 14.2 % (12.1-15.1); White Blood Count 3.8 10^3/uL (4.0-10.0)
[2020-08-18 18:54] LABS: D Dimer 0.55 ug/mIFEU (0-0.59)
[2020-08-18 18:58] LABS: Alanine Aminotransferase 18 U/L (0-41); Albumin Level 3.5 g/dL (3.5-5.2); Alkaline Phosphatase 49 IU/L (40-130); Anion Gap 15.2 (5-19); Aspartate Amino Transferase 18 U/L (0-40); Blood Urea Nitrogen 19 mg/dL (8-23); C Reactive Protein 92.4 mg/L (0.0-4.9); Calcium 8.9 mg/dL (8.5-10.5); Carbon Dioxide 23 mmol/L (22-29); Chloride 99 mmol/L (98-107); Globulin 3.3 g/dL (1.3-4.6); Glucose 118 mg/dL (65-115); Lactate (Lactic Acid level) 0.8 mmol/L (0.5-2.2); Osmolality Calculated 279 mOsm/kg (285-295); Potassium 4.2 mmol/L (3.5-5.1); Sodium 133 mmol/L (136-145); Total Bilirubin 0.5 mg/dL (0.15-1.2); Total Protein 6.8 g/dL (6.6-8.7)
[2020-08-18 18:59] LABS: Troponin(5th) Baseline 15 ng/L (0-15)
[2020-08-18 19:29] LABS: Influenza A by IFA Negative (Negative); Influenza B by IFA Negative (Negative)
[2020-08-18 19:34] LABS: Erythrocyte Sedimentation Rate 54 mm/hr (0-10)
--- NOTE | 2020-08-18 19:38 | ECG_ITS ---
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 Measurements Intervals [place] Rate: 85 P: 20 AR: 143 QRS: -19 QRSD: 104 T: 12 QT: 343 QTc: 408 Interpretive Statements SINUS RHYTHM POSSIBLE LEFT VENTRICULAR HYPERTROPHY [VOLTAGE CRITERIA PLUS LAE OR QRS WIDENING] Compared to ECG 08/18/2020 18:11:19 Short AR interval no longer present T-wave abnormality no longer present Electronically Signed On 08-18-2020 21:12:38 COMPLIANCE CLERK by Sue Orr M.D. [id number]
[2020-08-18] MEDS: azithromycin 250 mg Tablet 500 MG PO (20:09)
[2020-08-18] MEDS: cefTRIAXone 1,000 MG in sodium chloride 0.9% (plus) 50 ML 100 MG IV (20:10)
[2020-08-18 20:15] LABS: Protein Urine 1+ (Negative); Specific Gravity, Urine 1.015 (1.005-1.030); Urine Appearance Clear (CLEAR); Urine Color Yellow (Yellow)
[2020-08-18 20:16] LABS: Add Urine Microscopic? YES; Bacteria Urine 1+ /hpf; Bilirubin Urine Neg (Negative); Blood Urine Neg (Negative); Glucose Urine UA Norm (Normal); Ketones Urine 1+ (Negative); Leukocyte Esterase Urine Trace (Negative); Mucus Urine 2+ /hpf; Nitrate Urine Negative (Negative); RBC Urine 0-4 /hpf (0-2); Urobilinogen Urine 4 mg/dL (Negative)
[2020-08-18] MEDS: dexamethasone 4 mg Tablet 6 MG PO (20:16)
[2020-08-18 20:17] LABS: Add Urine Culture? Yes
[2020-08-18 20:18] VITALS: BP 155/76; PULSE 86; RESP 17; O2SAT 92
[2020-08-18 20:46] LABS: SARS Covid-2 Antigen Negative (Negative)
[2020-08-18] MEDS: acetaminophen 500 mg Tablet 1000 MG PO (21:15)
[2020-08-18 21:49] LABS: Procalcitonin 0.08 ng/mL (0-0.5)
[2020-08-20 18:12] LABS: Coronavirus Lab Test PTC Positive
--- NOTE | 2020-08-21 08:48 | PC.NURSE ---
pt not notified with positive covid results due to pt already being aware of positive covid status
== END 2020-08-18 21:16 | disposition home or self-care (01) ==
PROVIDERS: Emergency Provider Nurse Practitioner Family; PCP Nurse Practitioner Family
DX: U07.1 COVID-19 (principal); J12.89 Other viral pneumonia; R50.9 Fever, unspecified
CPT/HCPCS: 12345; 71045; 80053; 81001; 83605; 84145; 84484; 85025; 85378; 85651; 86140; 87086; 87426; 87635; 87804; 93005; 96365; 99283; 99284; J0696; J8540; Q0144

== ENCOUNTER → 2021-01-11 08:50 | Outpatient (BNVA) | payer MEDICARE, OTHER, SELFPAY | PROVIDERS: PCP Nurse Practitioner Family; Visit Provider Nurse Practitioner Family | DX: M25.512 Pain in left shoulder (principal) | CPT/HCPCS: 73030 ==

== ENCOUNTER 2021-02-03 06:00 | Outpatient (RCR) | payer MEDICARE, OTHER, SELFPAY | END 2021-02-08 23:59 | disposition home or self-care (01) | LOC: MPT 06:00 | PROVIDERS: PCP Nurse Practitioner Family; Referring Provider Orthopaedic Surgery; Visit Provider Orthopaedic Surgery | DX: M75.102 Unspecified rotator cuff tear or rupture of left shoulder, not specified as traumatic (principal) | CPT/HCPCS: 97110; 97161 ==

== ENCOUNTER → 2021-02-04 15:19 | Outpatient (BNVA) | payer MEDICARE, OTHER, SELFPAY | PROVIDERS: PCP Nurse Practitioner Family; Referring Provider Nurse Practitioner Family; Visit Provider Nurse Practitioner Family | DX: Z12.5 Encounter for screening for malignant neoplasm of prostate (principal); N40.0 Benign prostatic hyperplasia without lower urinary tract symptoms; N40.1 Benign prostatic hyperplasia with lower urinary tract symptoms | CPT/HCPCS: 81003; 87077; 87086; 87184; G0103 ==

== ENCOUNTER 2021-02-09 06:00 | Outpatient (RCR) | payer MEDICARE, OTHER, SELFPAY | END 2021-03-10 23:59 | disposition home or self-care (01) | LOC: MPT 06:00 | PROVIDERS: PCP Nurse Practitioner Family; Referring Provider Orthopaedic Surgery; Visit Provider Orthopaedic Surgery | DX: M75.102 Unspecified rotator cuff tear or rupture of left shoulder, not specified as traumatic (principal) | CPT/HCPCS: 97110; 97140; G0283 ==

== ENCOUNTER 2021-03-11 06:00 | Outpatient (RCR) | payer MEDICARE, OTHER, SELFPAY | END 2021-04-10 23:59 | disposition home or self-care (01) | LOC: MPT 06:00 | PROVIDERS: PCP Nurse Practitioner Family; Referring Provider Orthopaedic Surgery; Visit Provider Orthopaedic Surgery | DX: M75.102 Unspecified rotator cuff tear or rupture of left shoulder, not specified as traumatic (principal) | CPT/HCPCS: 97110; 97140; G0283 ==

== ENCOUNTER → 2021-04-01 08:43 | Outpatient (BNVA) | payer MEDICARE, OTHER, SELFPAY | PROVIDERS: PCP Nurse Practitioner Family; Visit Provider Urology | DX: N40.1 Benign prostatic hyperplasia with lower urinary tract symptoms (principal) | CPT/HCPCS: 81003 ==

== ENCOUNTER → 2021-04-28 08:56 | Outpatient (BNVA) | payer MEDICARE, OTHER, SELFPAY | PROVIDERS: PCP Nurse Practitioner Family; Visit Provider Urology | DX: N40.1 Benign prostatic hyperplasia with lower urinary tract symptoms (principal) | CPT/HCPCS: 81003 ==

== ENCOUNTER → 2021-11-02 08:34 | Outpatient (BNVA) | payer MEDICARE, SELFPAY | PROVIDERS: PCP Nurse Practitioner Family; Visit Provider Urology | DX: N40.1 Benign prostatic hyperplasia with lower urinary tract symptoms (principal) | CPT/HCPCS: 81003 ==

== ENCOUNTER → 2022-04-04 08:50 | Outpatient (BNVA) | payer MEDICARE, SELFPAY | PROVIDERS: PCP Nurse Practitioner Family; Visit Provider Internal Medicine Cardiovascular Disease | DX: R00.2 Palpitations (principal); R06.02 Shortness of breath; I95.1 Orthostatic hypotension; N40.1 Benign prostatic hyperplasia with lower urinary tract symptoms; I49.3 Ventricular premature depolarization; I49.1 Atrial premature depolarization; I47.2 Ventricular tachycardia | CPT/HCPCS: 93005; 93242; 99203 ==

== ENCOUNTER 2022-05-10 08:43 | Outpatient (CLI) | payer MEDICARE, OTHER, SELFPAY ==
[2022-05-10 09:31] LABS: PSA Screen - Urology 2.94 ng/mL (0-4)
== END 2022-05-10 08:44 | disposition home or self-care (01) ==
LOC: LAB 08:47
PROVIDERS: PCP Nurse Practitioner Family; Visit Provider Urology
DX: Z12.5 Encounter for screening for malignant neoplasm of prostate (principal); N40.1 Benign prostatic hyperplasia with lower urinary tract symptoms
CPT/HCPCS: 36415; 51741; 51798; 81003; 99213; G0103

== ENCOUNTER 2022-05-23 09:20 | Outpatient (CLI) | payer MEDICARE, OTHER, SELFPAY ==
--- NOTE | 2022-05-23 10:00 | USCV_ITS ---
Kenneth Dewitt Age: 81 Gender: M : 1940 Exam Date: 05/23/2022 10:01 Ordering Phys: Sue Orr MD ([email or web address]) Technologist: Suni Chacon [place] [facility] [place]: palpitations, sob BP: 124 / 72 HR: 66 Rhythm: Sinus Technical Quality: Good MEASUREMENTS (Male / Female) Normal Values 2D ECHO LV Diastolic Diameter PLAX 5.4 cm 4.2 - 5.9 / 3.9 - 5.3 cm LV Systolic Diameter PLAX 2.9 cm IVS Diastolic Thickness 1.0 cm 0.6 - 1.0 / 0.6 - 0.9 cm IVS Systolic Thickness 2.0 cm LVPW Diastolic Thickness 0.9 cm 0.6 - 1.0 / 0.6 - 0.9 cm LVPW Systolic Thickness 1.8 cm LVOT Diameter 2.2 cm LV Ejection Fraction 2D Teich 76.5 % LV Ejection Fraction MOD 2C 58.7 % LV Ejection Fraction 2C AL 59.1 % LA Diameter 3.2 cm LA Width 4.1 cm LA Height 5.6 cm RA Width 4.6 cm RA Height 4.6 cm Aorta at Sinotubular Diameter 3.5 cm IVC Diameter 1.6 cm M-MODE MV E Point Septal Separation 0.4 cm DOPPLER AV Peak Velocity 177.0 cm/s LVOT Peak Velocity 116.0 cm/s AV Area Cont Eq vti 2.9 cm squared AV Area Cont Eq pk 2.5 cm squared MV Peak Velocity 91.0 cm/s MV Area PHT 2.5 cm squared Mitral E to A Ratio 0.8 MV E' Velocity 33.5 cm/s Mitral E to MV E' Ratio 9.7 Mitral E to LV E' Lateral Ratio 9.1 Mitral E to LV E' Septal Ratio 10.4 TR Peak Velocity 234.0 cm/s TR Peak Gradient 21.9 mmHg Right Atrial Pressure 3.0 mmHg Pulmonary Artery Systolic Pressu 24.9 mmHg PV Peak Velocity 121.0 cm/s RV Acceleration Time 0.1 s RV Ejection Time 0.3 s RV AcT/ET 0.3 FINDINGS Left Ventricle Normal left ventricular size, systolic function and wall thickness, with no regional wall motion abnormalities. Left ventricular ejection fraction is estimated at 60 %. Normal diastolic function. Right Ventricle Normal right ventricular size and systolic function. Right ventricular systolic pressure 23 mmHg. Right Atrium Normal right atrial size. Left Atrium Upper normal left atrial size. Mitral Valve Structurally normal mitral valve. No mitral valve stenosis. Mild mitral valve regurgitation. Aortic Valve Mildly thickened trileaflet aortic valve. No aortic valve stenosis. No aortic valve regurgitation. Tricuspid Valve Structurally normal tricuspid valve. No tricuspid valve stenosis. Trace to mild tricuspid valve regurgitation. Pulmonic Valve Structurally normal pulmonic valve. No pulmonary valve stenosis. No pulmonary valve regurgitation. Pericardium No pericardial effusion. Aorta Mildly dilated aortic root measured at 42 mm anteroposteriorly. IVC Normal sized inferior vena cava. CONCLUSIONS 1. Normal left ventricular size, systolic function and wall thickness, with no regional wall motion abnormalities. Left ventricular ejection fraction is estimated at 60 %. Normal diastolic function. 2. Normal right ventricular size and systolic function. 3. Mild mitral valve regurgitation. 4. Mildly dilated aortic root measured at 42 mm anteroposteriorly. 5. No prior similar study to compare. Sue Orr MD (Electronically Signed) Final Date: 24 May 2022 16:53 S
== END 2022-05-23 09:21 | disposition home or self-care (01) ==
PROVIDERS: PCP Nurse Practitioner Family; Visit Provider Internal Medicine Cardiovascular Disease
DX: R06.02 Shortness of breath (principal); R00.2 Palpitations; I08.3 Combined rheumatic disorders of mitral, aortic and tricuspid valves
CPT/HCPCS: 93306

== ENCOUNTER → 2022-07-11 13:08 | Outpatient (BNVA) | payer MEDICARE, OTHER, SELFPAY | PROVIDERS: PCP Nurse Practitioner Family; Visit Provider Internal Medicine Cardiovascular Disease | DX: R00.2 Palpitations (principal); N40.1 Benign prostatic hyperplasia with lower urinary tract symptoms; R06.02 Shortness of breath; I49.3 Ventricular premature depolarization; I47.1 Supraventricular tachycardia; I95.1 Orthostatic hypotension | CPT/HCPCS: 99214 ==

== ENCOUNTER → 2022-11-08 08:42 | Outpatient (BNVA) | payer MEDICARE, OTHER, SELFPAY | PROVIDERS: PCP Nurse Practitioner Family; Visit Provider Urology | DX: N40.1 Benign prostatic hyperplasia with lower urinary tract symptoms (principal) | CPT/HCPCS: 51741; 51798; 81003; 99213 ==

== ENCOUNTER → 2023-05-03 12:40 | Outpatient (BNVA) | payer MEDICARE, OTHER, SELFPAY | PROVIDERS: PCP Nurse Practitioner Family; Referring Provider Nurse Practitioner Family; Visit Provider Nurse Practitioner Family | DX: M25.512 Pain in left shoulder (principal) | CPT/HCPCS: 73030 ==

== ENCOUNTER → 2025-07-14 10:00 | Outpatient (BNVA) | payer MEDICARE, OTHER, SELFPAY | PROVIDERS: PCP Nurse Practitioner Family; Visit Provider Nurse Practitioner Family | DX: R05.3 Chronic cough (principal); I70.90 Unspecified atherosclerosis | CPT/HCPCS: 71046 ==